=== PATIENT | male | born 1935 | race Caucasian/White ===

== ENCOUNTER 2020-06-24 15:56 | Emergency (ER) | payer MEDICARE, OTHER ==
[2020-06-24] MEDS ORDERED: Alum Hydrox/Mag Hydrox/Simeth 30 ML, Lidocaine 2% 15 ML PO ONE ×2 (16:29)
--- NOTE | 2020-06-24 16:36 | EDM.PDOC ---
ED HPI GENERAL MEDICAL PROBLEM - General Chief Complaint: Abdominal Pain Stated Complaint: ABD PAIN Time Seen by Provider: 06/24/20 16:02 Source of Information: Reports: Patient History Limitations: Reports: No Limitations - History of Present Illness INITIAL COMMENTS - FREE TEXT/NARRATIVE: 85-year-old male presents emergency department today with complaints of epigastric pain. Patient states this started after eating lunch. States he is having epigastric burning that has not let up since then. States he ate the same casserole for lunch yesterday and did not have any issues with that. Denies any chest pressure or discomfort or radiation up into his neck or jaw, denies shortness of breath, nausea, fever, chills, or diarrhea. Patient does have a history of chronic constipation for which he takes a stool softener daily followed by a laxative followed by an enema if that does not work. Patient states his last bowel movement was 2 days ago. Denies any black tarry stools or blood noted in the stool. Middle Abdomen Pain Score (Numeric/FACES): 6 - Related Data Allergies Allergy/AdvReac Type Severity Reaction Status Date / Time Cohgdht-Big-Xfn Reductase Allergy Severe Body Aches Verified 06/24/20 16:10 Inhibitor terbinafine [From Lamisil] Allergy Severe Hives Verified 06/24/20 16:10 Home Meds: Home Meds Aspirin [Halfprin] 81 mg PO DAILY 10/30/17 [History] Ezetimibe [Zetia] 10 mg PO DAILY 10/30/17 [History] Finasteride [Proscar] 5 mg PO DAILY 10/30/17 [History] Furosemide [Lasix] 20 mg PO DAILY 10/30/17 [History] Warfarin Sodium [Coumadin] 7.5 mg PO ASDIRECTED 10/30/17 [History] Warfarin [Coumadin] 5 mg PO ASDIRECTED 10/30/17 [History] amLODIPine Besylate [Amlodipine Besylate] 10 mg PO DAILY 10/30/17 [History] Past Medical History HEENT History: Reports: Hard of Hearing Cardiovascular History: Reports: Hypertension, Pacemaker Respiratory History: Reports: PE Gastrointestinal History: Reports: Cholelithiasis Genitourinary History: Reports: Prostate Disorder, Renal Calculus Hematologic History: Reports: Anticoagulation Therapy - Past Surgical History HEENT Surgical History: Reports: Cataract Surgery, Tonsillectomy Cardiovascular Surgical History: Reports: Pacer GI Surgical History: Reports: Appendectomy, Hernia Repair/Other Male Surgical History: Reports: Kidney Stone Extraction Neurological Surgical History: Reports: Other (See Below) Other Neurological Surgeries/Procedures: Surgery on herniated disc in neck and back. Musculoskeletal Surgical History: Reports: Arthroscopic Knee, Other (See Below) Other Musculoskeletal Surgeries/Procedures:: Hammer Toe Surgery 02/16/20. Social & Family History - Tobacco Use Tobacco Use Status *Q: Never Tobacco User - Caffeine Use Caffeine Use: Reports: None - Recreational Drug Use Recreational Drug Use: No ED ROS GENERAL - Review of Systems Review Of Systems: Comprehensive ROS is negative, except as noted in HPI. ED EXAM, GI/ABD - Physical Exam Exam: See Below Exam Limited By: No Limitations General Appearance: Alert, WD/WN, No Apparent Distress Ears: Normal External Exam. No: Hearing Grossly Normal (pt is hard of hearing) Nose: Normal Inspection, Normal Mucosa Throat/Mouth: Normal Inspection, Normal Lips, Normal Voice, No Airway Compromise Head: Atraumatic, Normocephalic Neck: Normal Inspection, Supple, Non-Tender, Full Range of Motion Respiratory/Chest: No Respiratory Distress, Lungs Clear, Normal Breath Sounds, No Accessory Muscle Use, Chest Non-Tender Cardiovascular: Normal Peripheral Pulses, Regular Rate, Rhythm, No Edema, No Murmur GI/Abdominal Exam: Normal Bowel Sounds, Soft, No Distention, Tender (epigastric) (Male) Exam: Deferred Rectal (Males) Exam: Deferred Back Exam: Normal Inspection, Full Range of Motion Extremities: Normal Inspection, Normal Range of Motion, Non-Tender, No Pedal Edema, Normal Capillary Refill Neurological: Alert, Oriented, Normal Cognition Psychiatric: Normal Affect, Normal Mood Skin Exam: Warm, Dry, Intact, Normal Color, No Rash Lymphatic: No Adenopathy #1 Interpretation EKG Date: 06/24/20 Time: 16:42 Rhythm: NSR Rate (Beats/Min): 54 [place]: Normal P-Wave: Present QRS: Normal ST-T: Normal QT: Normal Comparison: NA - No Prior EKG EKG Interpretation Comments: Per Dr. Escobar interpretation: sinus rhythm; old anteroseptal infarct Course - Vital Signs Text/Narrative:: 85-year-old male with complaints of epigastric pain that started today after eating a casserole type of meal for lunch. States he had the same meal yesterday and did not have any issues with epigastric pain or discomfort. States this epigastric "burning "has been constant since after lunch. Denies any radiation into his jaw or shoulder. Denies any shortness of breath, diaphoresis or nausea associated with it. States he does not have a history of GERD and does not take any medications for it. I have ordered labs, EKG to rule out UT, chest x-ray and a GI cocktail for this patient. Last Recorded V/S: Last Vital Signs Temp 97.2 F 06/24/20 16:06 Pulse 59 L 06/24/20 16:06 Resp 16 06/24/20 16:06 BP 175/75 H 06/24/20 16:06 Pulse Ox 97 06/24/20 16:06 - Orders/Labs/Meds Orders: Active Orders 24 hr Category Date Time Status EKG Documentation Completion [RC] STAT Care 06/24/20 16:28 Active Abdomen Series w Chest 1V [CR] Stat Exams 06/24/20 16:49 Taken Labs: Laboratory Tests 06/24/20 06/24/20 06/24/20 Range/Units 16:00 16:09 16:09 WBC 6.09 (4.23-9.07) K/mm3 RBC 4.65 (4.63-6.08) M/mm3 Hgb 13.5 L (13.7-17.5) gm/dl Hct 41.9 (40.1-51.0) % MCV 90.1 (79.0-92.2) fl MCH 29.0 (25.7-32.2) pg MCHC 32.2 (32.2-35.5) g/dl RDW Std Deviation 44.9 H (35.1-43.9) fL Plt Count 217 (163-337) K/mm3 MPV 10.7 (9.4-12.3) fl Neut % (Auto) 63.1 (34.0-67.9) % Lymph % (Auto) 23.6 (21.8-53.1) % Elbert % (Auto) 8.4 (5.3-12.2) % Eos % (Auto) 4.4 (0.8-7.0) Baso % (Auto) 0.3 (0.1-1.2) % Neut # (Auto) 3.84 (1.78-5.38) K/mm3 Lymph # (Auto) 1.44 (1.32-3.57) K/mm3 Elbert # (Auto) 0.51 (0.30-0.82) K/mm3 Eos # (Auto) 0.27 (0.04-0.54) K/mm3 Baso # (Auto) 0.02 (0.01-0.08) K/mm3 Sodium 141 (136-145) mEq/L Potassium 4.0 (3.5-5.1) mEq/L Chloride 104 (98-107) mEq/L Carbon Dioxide 27 (21-32) mEq/L Anion Gap 14.0 (5-15) BUN 26 H (7-18) mg/dL Creatinine 1.3 (0.7-1.3) mg/dL Est Cr Clr Drug Dosing 47.80 mL/min Estimated GFR (MDRD) 53 (>60) mL/min BUN/Creatinine Ratio 20.0 H (14-18) Glucose 133 H (83-115) mg/dL Calcium 8.8 (8.5-10.1) mg/dL Magnesium 2.3 (1.8-2.4) mg/dl Total Bilirubin 0.3 (0.2-1.0) mg/dL AST 58 H (15-37) U/L ALT 23 (16-63) U/L Alkaline Phosphatase 71 (46-116) U/L Troponin I 0.033 (0.00-0.056) ng/mL C-Reactive Protein < 0.2 (<1.0) mg/dL Total Protein 8.7 H (6.4-8.2) g/dl Albumin 3.7 (3.4-5.0) g/dl Globulin 5.0 gm/dL Albumin/Globulin Ratio 0.7 L (1-2) Urine Color Yellow (Yellow) Urine Appearance Clear (Clear) Urine pH 5.5 (5.0-8.0) Ur Specific [place] 1.025 (1.005-1.030) Urine Protein Negative (Negative) Urine Glucose (UA) Negative (Negative) Urine Ketones Negative (Negative) Urine Occult Blood Negative (Negative) Urine Nitrite Negative (Negative) Urine Bilirubin Negative (Negative) Urine Urobilinogen 0.2 (0.2-1.0) Ur Leukocyte Esterase Negative (Negative) Meds: Medications Discontinued Medications Generic Name Dose Route Start Last Admin Trade Name Robert PRN Reason Stop Dose Admin Al Hydroxide/Mg Hydroxide 30 0 ml 06/24/20 16:29 06/24/20 16:37 ml/ Lidocaine HCl 15 ml PO 06/24/20 16:30 45 ml ONETIME ONE Administration Famotidine 20 mg 06/24/20 17:42 06/24/20 18:39 Famotidine 20 Mg Tab PO 06/24/20 17:43 20 mg ONETIME ONE Administration - Re-Assessments/Exams Free Text/Narrative Re-Assessment/Exam: 06/24/20 17:30 Hematology is unremarkable, chemistry reveals a sodium of 141, potassium 4.0, anion gap is 14.0, BUN is 26, creatinine is 1.3, glucose 133, magnesium 2.3, AST 58, ALT 23, troponin 0 0.033, C-reactive protein less than 0.2 Urinalysis is unremarkable. Patient states that the GI cocktail did help relieve the epigastric burning. Awaiting x-ray results. 06/24/20 17:55 Nothing acute is appreciated on chest xray or abdominal xray. I have ordered for the patient to receive a dose of PO pepcid. It appears that the patient has GERD. Will discharge him to home with recommendations that he follow up with his primary care provider this week in the clinic. 06/24/20 18:45 states he is feeling 100% better. No complaints of any sort of epigastric pain or irritation. He will be discharged home. Departure - Departure Time of Disposition: 18:46 Disposition: Home, Self-Care 01 Condition: Good Clinical Impression: GERD (gastroesophageal reflux disease) Qualifiers: Esophagitis presence: esophagitis presence not specified Qualified Code(s): K21.9 - Gastro-esophageal reflux disease without esophagitis - Discharge Information Instructions: Food Choices for Gastroesophageal Reflux Disease, Adult Referrals: PCP,None [Primary Care Provider] - Forms: ED Department Discharge Additional Instructions: Were seen in the emergency department today with complaints of abdominal pain in your epigastric area. Labs were completed to rule out any heart problems and these were all negative. Your x-rays were unremarkable as well. You were given medication to help with gastroesophageal reflux and these did seem to work for you. Recommend that you start taking Pepcid 1 tab daily. This can be purchased [id number]. You should continue to take your Metamucil for good fiber supplementation. And you may take a laxative daily as this will not harm anything. Recommend you keep your appointment with your primary care physician for and also follow-up regarding this hospital visit. Should your condition worsen or change, do not hesitate returning to the emergency dep artment. Sepsis Event Note (ED) - Evaluation Sepsis Screening Result: No Definite Risk - Focused Exam Vital Signs: Vital Signs Temp Pulse Resp BP Pulse Ox 06/24/20 16:06 97.2 F 59 L 16 175/75 H 97 - My Orders Last 24 Hours: My Active Orders 06/24/20 16:28 EKG Documentation Completion [RC] STAT 06/24/20 16:49 Abdomen Series w Chest 1V [CR] Stat - Assessment/Plan Last 24 Hours: My Active Orders 06/24/20 16:28 EKG Documentation Completion [RC] STAT 06/24/20 16:49 Abdomen Series w Chest 1V [CR] Stat
[2020-06-24] MEDS ORDERED: Famotidine 20 MG Tab PO ONE (17:42)
--- NOTE | 2020-06-25 07:54 | CR ---
Abdominal series: PA view of the chest was obtained as well as supine and upright views the abdomen. Comparison: Prior chest x-ray of 06/21/19, no prior abdominal x-ray, previous CT abdomen and pelvis study of 10/30/17. Heart size is normal. Lungs are clear with no acute parenchymal change. Bichamber pacemaker is noted. No free air is seen. Minimal scoliosis is noted within the spine. Slight calcifications are seen in the area of the pancreas. No discrete soft tissue abnormality is appreciated. Bowel gas pattern is normal. Impression: 1. Nothing acute is seen on frontal chest x-ray. 2. Slight calcifications within the pancreas. 3. Nothing acute is seen on 2 view abdominal x-ray. Diagnostic code #2
== END 2020-06-24 19:00 | disposition home or self-care (01) ==
LOC: JD.ED 15:56
DX: K21.9 Gastro-esophageal reflux disease without esophagitis (principal); I10 Essential (primary) hypertension; Z86.711 Personal history of pulmonary embolism; Z88.8 Allergy status to other drugs, medicaments and biological substances; Z88.3 Allergy status to other anti-infective agents; Z79.01 Long term (current) use of anticoagulants; Z79.82 Long term (current) use of aspirin; Z79.899 Other long term (current) drug therapy
CPT/HCPCS: 36415; 74022; 80053; 81003; 83735; 84484; 85025; 86140; 93005; 99284; A9270; 93010; 99283

== ENCOUNTER 2023-12-25 17:47 | Emergency (ER) | payer MEDICARE, OTHER ==
[2023-12-25] MEDS: Sodium Chloride 0.9% 10 ML Syringe FLUSH PRN (18:41)
[2023-12-25 18:46] LABS: BASOPHILS PERCENT AUTO 0.3 % (0.0-1.0); EOSINOPHILS ABSOLUTE AUTO 0.2 K/mm3 (0.0-0.4); EOSINOPHILS PERCENT AUTO 2.3 % (0.0-6.0); HEMATOCRIT 29.3 % (42.0-52.0); HEMOGLOBIN 9.4 gm/dl (14.0-18.0); IMMATURE GRAN ABSOLUTE AUTO 0.05 K/mm3 (0.00-0.05); IMMATURE GRAN PERCENT AUTO 0.6 % (0.0-0.4); LYMPHOCYTES ABSOLUTE AUTO 1.1 K/mm3 (1.0-4.8); LYMPHOCYTES PERCENT AUTO 14.6 % (24.0-44.0); MEAN CORPUSCULAR HEMOGLOBIN 28.1 pg (28.0-32.0); MEAN CORPUSCULAR HGB CONC 32.1 g/dl (32.0-36.0); MEAN CORPUSCULAR VOLUME 87.5 fl (83.0-99.0); MEAN PLATELET VOLUME 9.6 fl (9.4-12.4); MONOCYTES ABSOLUTE AUTO 0.7 K/mm3 (0.0-0.8); MONOCYTES PERCENT AUTO 9.5 % (0.0-8.0); NEUTROPHILS ABSOLUTE AUTO 5.7 K/mm3 (1.8-7.7); NEUTROPHILS PERCENT AUTO 72.7 % (41.0-71.0); PLATELET COUNT,PLT 380 K/mm3 (150-400); RED BLOOD CELL COUNT 3.35 M/mm3 (4.52-5.90)
[2023-12-25 19:07] LABS: A/G RATIO 0.5 (1-2); ALBUMIN 2.7 g/dl (3.4-5.0); ANION GAP 13.6 (5-15); BILIRUBIN TOTAL 0.3 mg/dL (0.2-1.0); BUN/CREATININE RATIO 19.3 (14-18); C-REACTIVE PROTEIN 1.23 mg/dL (<0.30); CALCIUM 8.2 mg/dL (8.5-10.1); CREATININE 1.4 mg/dL (0.7-1.3); EST CRCL DRUG DOSING (CG) 42.01 mL/min; POTASSIUM,K 4.6 mEq/L (3.5-5.1); PROTEIN TOTAL,TP 7.7 g/dl (6.4-8.2)
[2023-12-25 19:20] LABS: INR 2.38; PROTHROMBIN TIME 23.8 SECONDS (9.7-12.0)
[2023-12-25] MEDS: Sodium Chloride 0.9% 500 ML IV ONE (19:36)
[2023-12-25] MEDS: Iopamidol 755 Mg/ML 100 ML Bottle IVPUSH ONE (20:10)
[2023-12-25] MEDS: Sodium Chloride 0.9% 100 ML IV SCH (20:10)
[2023-12-25] MEDS: Sodium Chloride 0.9% 10 ML Syringe FLUSH ONE (20:10)
== END 2023-12-25 22:45 | disposition home or self-care (01) ==
LOC: JD.ED 17:47
DX: I80.02 Phlebitis and thrombophlebitis of superficial vessels of left lower extremity (principal); I73.9 Peripheral vascular disease, unspecified; I10 Essential (primary) hypertension; Z79.01 Long term (current) use of anticoagulants; Z79.02 Long term (current) use of antithrombotics/antiplatelets; Z79.82 Long term (current) use of aspirin; Z79.899 Other long term (current) drug therapy; Z88.8 Allergy status to other drugs, medicaments and biological substances
CPT/HCPCS: 36415; 75635; 80053; 85025; 85610; 85652; 86140; 93971; 96360; 99284; J3490; J7030; Q9967; 99283